=== PATIENT | female | born 1980 | race Caucasian/White ===

== ENCOUNTER 2018-06-24 10:46 | Emergency (ER) | payer OTHER ==
--- NOTE | 2018-06-24 11:07 | EDM.PDOC ---
ED HPI GENERAL MEDICAL PROBLEM - General Chief Complaint: Cardiovascular Problem Stated Complaint: HIGH BLOOD PRESSURE Time Seen by Provider: 06/24/18 10:48 Source of Information: Reports: Patient History Limitations: Reports: No Limitations - History of Present Illness INITIAL COMMENTS - FREE TEXT/NARRATIVE: HISTORY AND PHYSICAL: History of present illness: Patient is a 38-year-old female who presents to the emergency room with complaints of elevated blood pressure during . She recently found out she is first trimester and had previously been on lisinopril but stopped this medication herself due to previous [place]. She states she has not taken the lisinopril since the first week in May. She recently was seen by her [employer] nurse who did confirm . She reports at that time she had mentioned she stopped the lisinopril but did not have her blood pressure evaluated. Patient is a 3, para 2. In her previous she had been on labetalol during her gestation. She reports that if she had not checked her blood pressure per self she would not be here in the emergency room. Asymptomatic. She denies any fever, chills, chest pain, shortness of breath or cough. No peripheral edema. No headache, change in vision or diaphoresis. She denies any abdominal pain, cramping, vaginal bleeding, nausea, vomiting, diarrhea or constipation. Denies any dysuria. Review of systems: As per history of present illness and below otherwise all systems reviewed and negative. Past medical history: As per history of present illness and as reviewed below otherwise noncontributory. Surgical history: As per history of present illness and as reviewed below otherwise noncontributory. Social history: See social history for further information Family history: As per history of present illness and as reviewed below otherwise noncontributory. Physical exam General: HEENT: Atraumatic, normocephalic, pupils equal and reactive bilaterally, negative for conjunctival pallor or scleral icterus, mucous membranes moist, TMs normal bilaterally, throat clear, neck supple, nontender, trachea midline. No drooling or trismus noted. No meningeal signs. No hot potato voice noted. Lungs: Clear to auscultation, breath sounds equal bilaterally, chest nontender. Heart: S1S2, regular rate and rhythm without overt murmur Abdomen: Soft, nondistended, nontender. Negative for masses or hepatosplenomegaly. Negative for costovertebral tenderness. Pelvis: Stable nontender. Genitourinary: Deferred. Rectal: Deferred. Skin: Intact, warm, dry. No lesions or rashes noted. Extremities: Atraumatic, negative for cords or calf pain. Neurovascular unremarkable. Neuro: Awake, alert, oriented. Cranial nerves II through XII unremarkable. Cerebellum unremarkable. Motor and sensory unremarkable throughout. Exam nonfocal. Notes: Dr. Altamirano, patient's primary [employer] was consulted on this case. She is aware of the patient's current blood pressure reading along with her presentation here in the emergency room. She is requesting that this patient be started on labetalol 200 mg twice a day. She states that she will see the patient tomorrow in clinic at 10:15 AM for re-evalution. She will also have the patient follow- up with them in 1 week for continued management and monitoring of her blood pressure. Multiple attempts for IV start which were unsuccessful. Patient requests to hold on the IV fluid and medication. Lab work was obtained. Lab results were reviewed with the patient. BP is 140/88 at this time. Patient to follow-up as directed and discussed tomorrow. She denies any further questions or concerns at this time. Continues to be asymptomatic. Diagnostics: CBC, CMP, UA, EKG Therapeutics: IV fluid, hydralazine IV, labetalol by mouth Prescription: Labetalol by mouth 200 mg twice a day Impression: Hypertension in Plan: 1. Labetalol 200 mg twice daily. A limited amount has been prescribed for you as your OBGYN may adjust this medication. 2. [facility] at 1015am for follow up appointment. 3. Return to the ED as needed and as discussed. Definitive disposition and diagnosis as appropriate pending reevaluation and review of above. - Related Data Allergies Allergy/AdvReac Type Severity Reaction Status Date / Time Latex, Natural Rubber Allergy Hives Verified 06/24/18 11:04 naproxen Allergy Itching Verified 06/24/18 11:04 Sulfa (Sulfonamide Allergy Rash Verified 06/24/18 11:04 Antibiotics) ED ROS GENERAL - Review of Systems Review Of Systems: ROS reveals no pertinent complaints other than HPI. ED EXAM, GENERAL - Physical Exam Exam: See Below (See dictation) Course - Vital Signs Last Recorded V/S: Last Vital Signs Temp 97.0 F 06/24/18 11:05 Pulse 73 06/24/18 11:42 Resp 20 06/24/18 11:05 BP 190/93 H 06/24/18 11:42 Pulse Ox 100 06/24/18 11:05 - Orders/Labs/Meds Orders: Active Orders 24 hr Category Date Time Status EKG Documentation Completion [RC] STAT Care 06/24/18 11:17 Active Labs: Laboratory Tests 06/24/18 06/24/18 06/24/18 Range/Units 11:21 11:56 11:56 WBC 9.27 (4.0-11.0) K/uL RBC 4.70 (4.30-5.90) M/uL Hgb 14.1 (12.0-16.0) g/dL Hct 41.6 (36.0-46.0) % MCV 88.5 (80.0-98.0) fL MCH 30.0 (27.0-32.0) pg MCHC 33.9 (31.0-37.0) g/dL RDW Std Deviation 44.0 (28.0-62.0) fl RDW Coeff of Anupam 14 (11.0-15.0) % Plt Count 249 (150-400) K/uL MPV 9.90 (7.40-12.00) fL Neut % (Auto) 66.0 (48.0-80.0) % Lymph % (Auto) 23.7 (16.0-40.0) % Dickenson % (Auto) 9.0 (0.0-15.0) % Eos % (Auto) 1.2 (0.0-7.0) % Baso % (Auto) 0.1 (0.0-1.5) % Neut # (Auto) 6.1 H (1.4-5.7) K/uL Lymph # (Auto) 2.2 (0.6-2.4) K/uL Dickenson # (Auto) 0.8 (0.0-0.8) K/uL Eos # (Auto) 0.1 (0.0-0.7) K/uL Baso # (Auto) 0.0 (0.0-0.1) K/uL Nucleated RBC % 0.0 /100WBC Nucleated RBCs # 0 K/uL Sodium 137 (136-145) mmol/L Potassium 3.8 (3.5-5.1) mmol/L Chloride 104 (98-107) mmol/L Carbon Dioxide 24.3 (21.0-32.0) mmol/L BUN 7 (7.0-18.0) mg/dL Creatinine 0.7 (0.6-1.0) mg/dL Est Cr Clr Drug Dosing 85.47 mL/min Estimated GFR (MDRD) > 60.0 ml/min Glucose 91 (74-106) mg/dL Calcium 9.8 (8.5-10.1) mg/dL Total Bilirubin 0.4 (0.2-1.0) mg/dL AST 12 L (15-37) IU/L ALT 19 (14-63) IU/L Alkaline Phosphatase 59 (46-116) U/L Total Protein 7.5 (6.4-8.2) g/dL Albumin 3.5 (3.4-5.0) g/dL Globulin 4.0 (2.6-4.0) g/dL Albumin/Globulin Ratio 0.9 (0.9-1.6) Urine Color YELLOW Urine Appearance CLEAR Urine pH 6.0 (5.0-8.0) Ur Specific Holden 1.010 (1.001-1.035) Urine Protein NEGATIVE (NEGATIVE) mg/dL Urine Glucose (UA) NEGATIVE (NEGATIVE) mg/dL Urine Ketones TRACE H (NEGATIVE) mg/dL Urine Occult Blood TRACE-INTACT H (NEGATIVE) Urine Nitrite NEGATIVE (NEGATIVE) Urine Bilirubin NEGATIVE (NEGATIVE) Urine Urobilinogen 0.2 (<2.0) EU/dL Ur Leukocyte Esterase NEGATIVE (NEGATIVE) Urine RBC 0-2 (0-2/HPF) Urine WBC 0-1 (0-5/HPF) Ur Epithelial Cells OCCASIONAL (NONE-FEW) Urine Bacteria RARE (NEGATIVE) Meds: Medications Discontinued Medications Generic Name Dose Route Start Last Admin Trade Name Vitoq PRN Reason Stop Dose Admin Hydralazine HCl 10 mg 06/24/18 11:16 06/24/18 12:22 Apresoline IVPUSH 06/24/18 11:17 Not Given ONETIME ONE Sodium Chloride 1,000 mls @ 999 mls/hr 06/24/18 11:10 06/24/18 12:22 Normal Saline IV 06/24/18 12:10 Not Given STAT ONE Labetalol HCl 200 mg 06/24/18 11:45 06/24/18 11:42 Normodyne PO 06/24/18 11:46 200 mg ONETIME ONE Administration Departure - Departure Time of Disposition: 12:40 Disposition: Home, Self-Care 01 Clinical Impression: Hypertension affecting in first trimester Instructions: Hypertension, [id number] Referrals: PCP,None [Primary Care Provider] - Forms: ED Department Discharge Additional Instructions: The following information is given to patients seen in the emergency department who are being discharged to home. This information is to outline your options for follow-up care. We provide all patients seen in our emergency department with a follow-up referral. The need for follow-up, as well as the timing and circumstances, are variable depending upon the specifics of your emergency department visit. If you don't have a primary care physician on staff, we will provide you with a referral. We always advise you to contact your personal physician following an emergency department visit to inform them of the circumstance of the visit and for follow-up with them and/or the need for any referrals to a consulting specialist. The emergency department will also refer you to a specialist when appropriate. This referral assures that you have the opportunity for follow-up care with a specialist. All of these measure are taken in an effort to provide you with optimal care, which includes your follow-up. Under all circumstances we always encourage you to contact your private physician who remains a resource for coordinating your care. When calling for follow-up care, please make the office aware that this follow-up is from your recent emergency room visit. If for any reason you are refused follow-up, please contact the [facility] Emergency Department at and asked to speak to the emergency department charge nurse. [facility] Primary Care [address] [place] [id number] [facility] [address] [place] [address] 1. Labetalol 200 mg twice daily. A limited amount has been prescribed for you as your OBGYN may adjust this medication. 2. You have an appointment tomorrow at [facility] at 1015am for follow up appointment. 3. Return to the ED as needed and as discussed. - My Orders Last 24 Hours: My Active Orders 06/24/18 11:17 EKG Documentation Completion [RC] STAT - Assessment/Plan Last 24 Hours: My Active Orders 06/24/18 11:17 EKG Documentation Completion [RC] STAT
[2018-06-24] MEDS: hydrALAZINE 20 MG/ML SDV IVPUSH ONE ×2 (11:22→12:22)
[2018-06-24] MEDS: Sodium Chloride 0.9% 1,000 ML IV ONE ×2 (11:22→12:22)
[2018-06-24] MEDS ORDERED: Labetalol 100 MG Tab PO ONE (11:45)
[2018-06-24 12:39] LABS: CHLORIDE,CL 104 mmol/L (98-107); SODIUM,NA 137 mmol/L (136-145)
== END 2018-06-24 13:20 | disposition home or self-care (01) ==
LOC: MW.ED 10:46
DX: O16.1 Unspecified maternal hypertension, first trimester (principal)
CPT/HCPCS: 36415; 80053; 81001; 85025; 93005; 99284; A9270; J0360; J7040